=== PATIENT | female | born 1960 | race Caucasian/White ===

== ENCOUNTER → 2022-06-18 | Outpatient (CLI) | payer OTHER, SELFPAY ==
--- NOTE | 2022-06-18 13:23 | RAD_ITS ---
INDICATION: PARESTHESIAS EXAMINATION/TECHNIQUE: X-RAY - XR Spine Cervical 4 or 5 Views COMPARISON: None. FINDINGS: VERTEBRAE: Loss of normal lordotic curvature which may be due to muscle spasm or positioning artifact. Preserved vertebral body height. No fracture. Grade 1 retrolisthesis at C4-5. Preservation of the normal cervical lordosis. No significant facet arthropathy. Narrowed left C5-6 nerve root foramen secondary to bony hypertrophy and on the right at C4-5 due to bony hypertrophy DISCS: Narrowed C3-4, C4-5 and C5-6 disc spaces with endplate spurring.. NECK SOFT TISSUES: No prevertebral soft tissue widening. LUNG APICES: Clear. RAD/Cerv Spine 4 or 5 Views IMPRESSION: Moderate degenerative changes. No acute fracture or subluxation CT or MRI would be helpful for further evaluation Electronically Signed: Karl Purdy MD at 23:00 EST ,
== END | disposition home or self-care (01) ==
LOC: MTRAD 13:22
PROVIDERS: PCP Family Medicine; Referring Provider Family Medicine; Visit Provider Family Medicine
DX: M47.812 Spondylosis without myelopathy or radiculopathy, cervical region (principal); M50.221 Other cervical disc displacement at C4-C5 level; M50.31 Other cervical disc degeneration, high cervical region; R20.2 Paresthesia of skin
CPT/HCPCS: 72050

== ENCOUNTER → 2023-04-23 | Outpatient (CLI) | payer MEDICARE, SELFPAY | END | disposition home or self-care (01) | LOC: MTLAB 07:43 | PROVIDERS: PCP Family Medicine; Referring Provider Family Medicine; Visit Provider Family Medicine | DX: Z00.00 Encounter for general adult medical examination without abnormal findings (principal); Z13.220 Encounter for screening for lipoid disorders; Z13.1 Encounter for screening for diabetes mellitus ==

== ENCOUNTER 2023-06-24 08:04 | Outpatient (CLI) | payer MEDICARE, SELFPAY ==
--- OUTSIDE RECORDS SUMMARY | 2023-06-24 08:17 | XMS RPT_ITS | CCD ---
Author Name Unknown Address [address] [place] [address] Organization [facility] Care Team Providers Care Channeler Name Role Phone Yamini SYED, Rula Primary Care Provider Allergies Allergy Classification Reported Allergen(s) Allergy Type Date of Onset Reaction(s) Facility (1 source) Codeine Drug Allergy 07-21-2017 Hives [facility] Work Phone: (1 source) Penicillins Propensity to adverse reactions 08-04-2005 Rash [facility] Medications Current Medications Medication Drug Class(es) Dates Sig (Normalized) Sig (Original) perflutren lipid microspheres 1.3 mL in NaCl (PF) 0.9% 10 mL injection (DEFINITY) (1 source) Start: 09-19-2020 End: 12-19-2021 perflutren lipid microspheres 1.3 mL in NaCl (PF) 0.9% 10 mL injection (DEFINITY) 125 ml sodium chloride 9 mg/ml prefilled syringe (1 source) Start: 09-19-2020 End: 12-19-2021 sodium chloride 0.9 % (flush) 10 mL (BD POSIFLUSH) Completed/Discontinued Medications Medication Drug Class(es) Dates Sig (Normalized) Sig (Original) aspirin 81 mg delayed release oral tablet (1 source) Platelet Aggregation Inhibitor, Nonsteroidal Anti-inflammatory Drug take 1 tablet by mouth once daily aspirin, enteric coated (ASPIRIN LOW DOSE) 81 mg EC tablet Take 81 mg by mouth once daily. 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; Translations: [Other cervical disc displacement, unspecified cervical region] Onset: 09-10-2005 09-10-2005 Chronic Past or Other Problems Problem Classification Problem Date Documented Da te Episodic/Chronic Other connective tissue disease (1 source) Lateral epicondylitis; Translations: [Lateral epicondylitis, unspecified elbow] Onset: 09-10-2005 09-10-2005 Episodic Encounters Encounter Date Encounter Type Care Provider Facility Start: 11-12-2021 ambulatory Rula Hernandez Work Phone: [facility] [place] Procedures Date Procedure Procedure Detail Performing Clinician Start: 10-10-2020 Mammography Rula pang MD Work Phone: Start: 09-12-2020 Adult depression scr eening assessment Rula Mistry MD Work Phone: Start: 04-13-2018 Colonoscopy Rula pang MD Work Phone: Plan of Treatment Date Care Activity Detail Author Start: 04-13-2028 Colonoscopy COLONOSCOPY [facility] Start: 04-13-2028 COLORECTAL CANCER SCREENING COLORECTAL CANCER SCREENING [facility] Start: 09-27-2025 LIPID SCREEN LIPID SCREEN [facility] Start: 09-28-2023 DIABETES SCREEN DIABETES SCREEN [facility] Start: 03-07-2022 Urine microalbumin profile DTAP,TDAP,TD (2 - Td or Tdap) [facility] Start: 02-05-2022 Influenza vaccination INFLUENZA (Season Ended) [facility] Start: 10-10-2021 Mammography MAMMOGRAM [facility] Start: 09-12-2021 Adult depression screening assessment DEPRESSION SCREENING [facility] Start: 2008 SHINGRIX VACCINE (1 of 2) SHINGRIX VACCINE (1 of 2) [facility] Start: 2003 COLOGUARD (FIT-DNA) COLOGUARD (FIT-DNA) [facility] Start: [address] COLONOGRAPHY [facility] Start: 2003 FECAL OCCULT BLOOD FECAL OCCULT BLOOD [facility] Start: 2003 SIGMOIDOSCOPY SIGMOIDOSCOPY [facility] Start: 1988 HPV TESTING HPV TESTING [facility] Start: 1979 PAP TESTING PAP TESTING [facility] Start: 1964 PNEUMOCOCCAL (1 - PCV) PNEUMOCOCCAL (1 - PCV) [facility] Start: 1963 COVID-19 VACCINE (#1) COVID-19 VACCINE (#1) [facility] End: 12-12-2022 Screening mammography bi 2-view breast inc cad JEEVAN SCREENING Radiology Routine Encounter for screening mammogram for breast cancer 1 Occurrences starting 11/12/2021 until 12/12/2022 [facility] Work Phone: Immunizations Immunization Date Immunization Notes Care Provider Fa cility 06-14-2018 influenza, injectabl e, quadrivalent, contains preservative Rula Mistry MD Work Phone: [facility] Work Phone: 03-07-2012 tetanus toxoid, redu anthony diphtheria toxoid, and acellular pertussis vaccine, adsorbed Rula Mistry MD Work Phone: [facility] Work Phone: Payers Date Payer Category Payer Private Health Insurance CIG[employer] C IGNA OAP [id number] 2020-Present [phone] [facility] [id number] [place] [address] Open Access [id number] Social History Date Type Detail Facility Tobacco smoking stat RUSTIS Smokes tobacco daily [facility] History of tobacco use Cigarette Smoker [facility] Start: 04-16-2021 Alcohol intake Current drinke r of alcohol (finding) [facility] Start: 09-12-2020 History SDOH Alcohol Frequency 2 [facility] Start: 06-27-2019 End: 09-12-2020 History SDOH Alcohol Std Drinks 1 [facility] Start: 09-12-2020 History SDOH Social Connections Phone 5 [facility] Start: 09-12-2020 History SDOH Social Connections Muslim 3 [facility] Start: 09-12-2020 History SDOH Physica l Activity DPW 4 [facility] Start: 09-12-2020 History SDOH Physica l Activity MPS 12 [facility] Start: 09-12-2020 Education 21 [facility] Start: 1960 Sex Assigned At Female C [facility] Clinical Note 11-11-2022 Note Date & Type Note Facility 11-11-2022 Note Patient Outreach (IN [facility]) NATHANIEL KENDRICK ([id number]) 1960 F Date Time Provider Department 11/11/22 RULA MISTRY During your visit today, we recorded the following information about you: Allergies As of Date: 11/11/2022 Noted Allergy Reaction CODEINE 07/21/2017 4 - Hives PENICILLINS 08/04/2005 2 - Rash Date Reviewed: 04/16/2021 Reviewed by: Natasha Polk DO - Fully Assessed Visit Diagnosis:Encounter for screening mammogram for breast cancer [Z12.31] Order(s):[facility] SCREENING [[id number]] Order #: [id number] FUTURE Prescriptions as of 11/16/2022 - loratadine (CLARITIN ORAL) Take by mouth. - aspirin, enteric coated (ASPIRIN LOW DOSE) 81 mg EC tablet Take 81 mg by mouth once daily. - naproxen sodium (ALEVE) 220 mg tablet Take 220 mg by mouth twice daily with meals. - MULTI-VITAMIN ORAL Take by mouth once daily. Problem List As Of Date 11/11/2022 Noted Resolved CERVICAL DISC DISPLACMNT [M50.20] 09/10/2005 LATERAL EPICONDYLITIS [M77.10] 09/10/2005 Encounter for screening for malignant neoplasm *03/29/2018 Encounter Status:Closed by CODY ABDALLA on 11/16/22 [facility] Evaluation note Note Date & Type Note Facility documented in this encounter [facility] Reason for referral (narrative) Diagnostic Procedure Only (Routine) - Pending Review Note Date & Type Note Facility Referral ID Status Reason Start Date Expiration Date Visits Requested Visits Authorized [id number] Pending Review Auto-Generat ed Referral 11/12/2021 12/12/2022 1 1 [facility] Advance Directives No Advanced Directives Records FoundDocuments on File Type Date Recorded 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 Advance Directive(s) 04/13/2018 7:06 AM Advance Directive(s) 04/06/2018 8:35 AM Summary Purpose Family History No Family History Records Found Additional Source Comments Source Comments (unrecognize d section and content) In the event this informatio n is protected by the Federal Confidentiality of Alcohol and Drug Abuse Patient Records regulations: The Federal rules restrict any use of the information to criminally investigate or prosecute any alcohol or drug abuse patient.[facility] Care Teams (unrecognized sec tion and content) INFORMATION SOURCE (unrecogn ized section and content) FOR RECORDS PERTAINING TO PATIENTS WHO ARE OR HAVE BEEN ENROLLED IN A CHEMICAL DEPENDENCY/SUBSTANCEABUSE PROGRAM, SOME INFORMATION MAY BE OMITTED. This clinical summary was aggregated from multiple sources. Caution should be exercised in using it in the provision of clinical care. This summary normalizes information from multiple sources, and as a consequence, information in this document may materially change the coding, format and clinical context of patient data. In addition, data may be omitted in some cases. CLINICAL DECISIONS SHOULD BE BASED ON THE PRIMARY CLINICAL RECORDS. [facility]. provides no warranty or guarantee of the accuracy or completeness of information in this document.
[2023-06-24 10:51] LABS: Anion Gap 4 (5-15); BUN 24 mg/dL (7-18); BUN/Creat Ratio 31.8 RATIO (10-20); Calcium,Total 9.4 mg/dL (8.5-10.1); Chloride 106 mmol/L (98-107); Cholesterol 307 mg/dL (200); Creatinine, Serum 0.75 mg/dL (0.55-1.02); EST Glomerular Filtration Rate 82 mL/min (>60); Est Glom Filt Rate - Afr Amer 99 mL/min (>60); Glucose 92 mg/dL (74-106); High Density Lipoprotein 69 mg/dL; Potassium 4.2 mmol/L (3.5-5.1); Sodium Level 139 mmol/L (136-145); Thyroid Stim Hormone (TSH) 1.38 uIU/mL (0.358-3.74); Triglycerides 147 mg/dL; Very Low Density Lipoprotein 29 mg/dL (5-40)
== END 2023-06-24 23:59 | disposition home or self-care (01) ==
LOC: MFPLAB 08:04
PROVIDERS: PCP Family Medicine; Visit Provider Family Medicine
DX: Z00.00 Encounter for general adult medical examination without abnormal findings (principal); Z13.6 Encounter for screening for cardiovascular disorders; F41.9 Anxiety disorder, unspecified
CPT/HCPCS: 36415; 80048; 80061; 82306; 84443

== ENCOUNTER → 2023-09-06 | Outpatient (CLI) | payer MEDICARE, SELFPAY ==
[2023-09-10 12:09] LABS: HPV APTIMA, High Risk Negative (Negative)
[2023-09-10 16:44] LABS: HPV Reflexed? YES, CHARGE PATIENT
== END | disposition home or self-care (01) ==
LOC: LABSPEC 12:23
PROVIDERS: PCP Family Medicine; Visit Provider Nurse Practitioner Family
DX: Z12.4 Encounter for screening for malignant neoplasm of cervix (principal)
CPT/HCPCS: 87624; 88175; G0145

== ENCOUNTER → 2023-09-24 | Outpatient (CLI) | payer MEDICARE, SELFPAY ==
[2023-09-24 11:50] LABS: Cholesterol 231 mg/dL (200); High Density Lipoprotein 56 mg/dL; Triglycerides 169 mg/dL; Very Low Density Lipoprotein 34 mg/dL (5-40)
== END | disposition home or self-care (01) ==
LOC: MFPLAB 08:01
PROVIDERS: PCP Family Medicine; Visit Provider Family Medicine
DX: E78.5 Hyperlipidemia, unspecified (principal)
CPT/HCPCS: 36415; 80061

== ENCOUNTER → 2024-08-04 | Outpatient (CLI) | payer MEDICARE, SELFPAY ==
[2024-08-04 12:54] LABS: Cholesterol 214 mg/dL (<=200); High Density Lipoprotein 65 mg/dL; Low Density Lipoprotein Calc. 124 mg/dL; Triglycerides 126 mg/dL; Very Low Density Lipoprotein 25 mg/dL (5-40)
[2024-08-04 13:07] LABS: Hemoglobin A1c 5.7 % (<=5.6)
== END | disposition home or self-care (01) ==
LOC: MTLAB 09:37
PROVIDERS: PCP Family Medicine
DX: Z13.220 Encounter for screening for lipoid disorders (principal); Z13.1 Encounter for screening for diabetes mellitus
CPT/HCPCS: 36415; 80061; 83036

== ENCOUNTER → 2024-09-12 | Outpatient (CLI) | payer MEDICARE, SELFPAY ==
--- NOTE | 2024-09-12 16:15 | BD_ITS ---
PROCEDURE: DEXA BONE DENSITY STUDY 09/12/2024 REASON FOR EXAM: None provided. TECHNIQUE: DXA scan of the lumbar spine and bilateral hips, using Hologic Horizon W. REFERENCE LINKS: ISCD Adult Positions COMPARISON: None. FINDINGS: LUMBAR SPINE: Bone mineral denisty, L1-L4: 0.865 g/cm??? T-score: -1.7 LEFT FEMORAL NECK: Bone mineral denisty: 0.653 g/cm??? T-score: -1.8 LEFT TOTAL HIP: Bone mineral denisty: 0.812 g/cm??? T-score: -1.1 RIGHT FEMORAL NECK: Bone mineral denisty: 0.665 g/cm??? T-score: -1.7 RIGHT TOTAL HIP: Bone mineral denisty: 0.795 g/cm??? T-score: -1.2 FRAX*: 10 Year Probability of Fracture: Major Osteoporotic Fracture(1): 9.5% Hip Fracture(2): 2.1% *FRAX is a trademark of the [employer]'s [employer] for Metabolic Bone Disease, World Health Organization (WHO) Collaborating [employer]. 1-Major Osteoporotic Fracture: Clinical Spine, Forearm, Hip or Shoulder. 2-The 10-year probability of fracture may be lower than reported if the patient has received treatment. The National Osteoporosis Foundation recommends that medical therapy be considered in postmenopausal women and men, age 50 and older, with a: * hip or vertebral fracture * T-score less than or equal to -2.5 in the spine or hip * T-score between -1.0 and -2.5 and FRAX equal to or less than 3 percent for hip fracture or equal to or less than 20 percent for major osteoporotic fracture. World Health Organization criteria for BMD interpretation classify patients as Normal (T-score at or above -1.0), Osteopenic (T-score between -1.0 and -2.5), or Osteoporotic (T-score at or below -2.5). BD/Dexa Bone Density Study IMPRESSION: 1. Osteopenia. 2. No prior exams are available for comparison. 3. Additional description as above. Reading Location: [id number]
--- NOTE | 2024-09-12 16:15 | BI_ITS ---
EXAM: SCRN MAMM (CAD)W/CHRISTI BILAT 09/12/2024 CLINICAL HISTORY: F, Age 64 y/o , SCREENING BREAST CANCER TECHNIQUE: Bilateral screening digital breast tomosynthesis with 2D and 3D images. Computer aided detection. COMPARISON: Prior exam(s) dated 09/19/2012, 04/05/2008. FINDINGS: TISSUE DENSITY: The breast tissue is heterogenously dense, which may obscure small masses. The mammogram demonstrates that the patient has dense breasts. Supplemental screening with whole breast ultrasound or MRI may be considered for further evaluation. Bilateral Breast Mammographic Findings: There is an asymmetry in the superior right breast at anterior depth visualized on the MLO view. No significant masses, calcifications or other abnormalities are identified in the left breast. BI/SCRN MAMM (CAD)W/CHRISTI BILAT IMPRESSION: The asymmetry in the superior right breast at anterior depth visualized on the MLO view requires further evaluation. Recommend diagnostic mammogram of the right breast and ultrasound on the day of diagnosti c if indicated. Right Breast: BIRADS 0 Incomplete: Need additional imaging evaluation and/or pr ior mammograms for comparison.. Left Breast: BIRADS 1 NEGATIVE. OVERALL FINAL ASSESSMENT: BIRADS 0 Incomplete: Need additional imaging evaluati on and/or prior mammograms for comparison.. RECOMMENDATION: Recommendation: Additional projections. A letter with findings and recommendations will be mailed to the patient. Reading Location: [facility]
== END | disposition home or self-care (01) ==
LOC: OPBD 16:14
PROVIDERS: PCP Family Medicine
DX: Z12.31 Encounter for screening mammogram for malignant neoplasm of breast (principal); Z13.820 Encounter for screening for osteoporosis; M85.88 Other specified disorders of bone density and structure, other site
CPT/HCPCS: 77063; 77067; 77080

== ENCOUNTER → 2024-09-15 | Outpatient (CLI) | payer MEDICARE, SELFPAY ==
--- NOTE | 2024-09-15 07:48 | US_ITS ---
PROCEDURE: DIAG MAMM W/CAD, UNILAT; RT BRST UNILAT CHRISTI ADD-ON; BREAST LIMITED UNILATERAL REASON FOR EXAM: 64-year-old female presents for follow-up of the right breast findings seen on the examination of 09/12/2024. No family history of breast cancer. COMPARISON: 09/12/2024, 09/19/2012 and 04/05/2008 TECHNIQUE: Right diagnostic digital breast tomosynthesis with 2D and 3D images. Computer aided detection. Also, targeted right breast ultrasound was performed. FINDINGS: MAMMOGRAM: TISSUE DENSITY: The breast is heterogeneously dense which may obscure small masses. Follow-up examination performed for the asymmetry in the superior right breast on examination of 09/12/2024. On the present examination, the asymmetry in the superior right breast at anterior depth persist. ULTRASOUND: Ultrasound performed of the superior right breast demonstrates an architecturally normal-appearing intramammary lymph node in the right breast at 1 o'clock 5 cm from the nipple measuring 0.8 x 0.7 x 0.3 cm, with normal cortical thickness of 0.1 cm. This is the likely correlate for the mammographic finding. US/Breast Limited Unilateral IMPRESSION: Benign right breast intramammary lymph node. BI-RADS 2: BENIGN RECOMMEND ANNUAL MAMMOGRAPHIC SCREENING. Reading Location: [id number]
--- NOTE | 2024-09-15 07:52 | BI_ITS ---
PROCEDURE: DIAG MAMM W/CAD, UNILAT; RT BRST UNILAT CHRISTI ADD-ON; BREAST LIMITED UNILATERAL REASON FOR EXAM: 64-year-old female presents for follow-up of the right breast findings seen on the examination of 09/12/2024. No family history of breast cancer. COMPARISON: 09/12/2024, 09/19/2012 and 04/05/2008 TECHNIQUE: Right diagnostic digital breast tomosynthesis with 2D and 3D images. Computer aided detection. Also, targeted right breast ultrasound was performed. FINDINGS: MAMMOGRAM: TISSUE DENSITY: The breast is heterogeneously dense which may obscure small masses. Follow-up examination performed for the asymmetry in the superior right breast on examination of 09/12/2024. On the present examination, the asymmetry in the superior right breast at anterior depth persist. ULTRASOUND: Ultrasound performed of the superior right breast demonstrates an architecturally normal-appearing intramammary lymph node in the right breast at 1 o'clock 5 cm from the nipple measuring 0.8 x 0.7 x 0.3 cm, with normal cortical thickness of 0.1 cm. This is the likely correlate for the mammographic finding. BI/DIAG MAMM W/CAD, UNILAT IMPRESSION: Benign right breast intramammary lymph node. BI-RADS 2: BENIGN RECOMMEND ANNUAL MAMMOGRAPHIC SCREENING. Reading Location: [id number]
--- NOTE | 2024-09-15 07:53 | BI_ITS ---
PROCEDURE: DIAG MAMM W/CAD, UNILAT; RT BRST UNILAT CHRISTI ADD-ON; BREAST LIMITED UNILATERAL REASON FOR EXAM: 64-year-old female presents for follow-up of the right breast findings seen on the examination of 09/12/2024. No family history of breast cancer. COMPARISON: 09/12/2024, 09/19/2012 and 04/05/2008 TECHNIQUE: Right diagnostic digital breast tomosynthesis with 2D and 3D images. Computer aided detection. Also, targeted right breast ultrasound was performed. FINDINGS: MAMMOGRAM: TISSUE DENSITY: The breast is heterogeneously dense which may obscure small masses. Follow-up examination performed for the asymmetry in the superior right breast on examination of 09/12/2024. On the present examination, the asymmetry in the superior right breast at anterior depth persist. ULTRASOUND: Ultrasound performed of the superior right breast demonstrates an architecturally normal-appearing intramammary lymph node in the right breast at 1 o'clock 5 cm from the nipple measuring 0.8 x 0.7 x 0.3 cm, with normal cortical thickness of 0.1 cm. This is the likely correlate for the mammographic finding. BI/Rt Brst [facility] Add-On IMPRESSION: Benign right breast intramammary lymph node. BI-RADS 2: BENIGN RECOMMEND ANNUAL MAMMOGRAPHIC SCREENING. Reading Location: [id number]
== END | disposition home or self-care (01) ==
LOC: OPUS 07:46
PROVIDERS: PCP Family Medicine
DX: R92.341 Mammographic extreme density, right breast (principal); R92.8 Other abnormal and inconclusive findings on diagnostic imaging of breast
CPT/HCPCS: 76642; 77061; 77065; G0279

== ENCOUNTER → 2024-10-09 | Outpatient (CLI) | payer MEDICARE, SELFPAY ==
--- NOTE | 2024-10-09 13:19 | RAD_ITS ---
EXAM: DX wrist minimum three views CLINICAL HISTORY: Pain, fall COMPARISON: None available TECHNIQUE: Three views right wrist FINDINGS: No fracture or dislocation. The joint spaces appear within limits. Soft tissue swelling about the wrist. RAD/Wrist min 3 Views IMPRESSION: No fracture or dislocation. If symptoms persist, may follow-up with a repeat i maging in 7-10 days as warranted. Soft tissue swelling about the wrist. Reading Location: [id number]
== END | disposition home or self-care (01) ==
LOC: MTRAD 13:17
PROVIDERS: PCP Family Medicine; Referring Provider Family Medicine; Visit Provider Family Medicine
DX: M25.531 Pain in right wrist (principal)
CPT/HCPCS: 73110

== ENCOUNTER → 2024-10-23 | Outpatient (CLI) | payer MEDICARE, SELFPAY ==
--- NOTE | 2024-10-23 16:34 | RAD_ITS ---
PROCEDURE: WRIST MIN 3 VIEWS 10/23/2024 REASON FOR EXAM: PAIN TECHNIQUE: 3 view(s) of the right wrist COMPARISON: 10/09/2024 FINDINGS: An obliquely oriented nondisplaced intra-articular distal radius fracture is now visible. No dislocation. Soft tissue swelling again noted. RAD/Wrist min 3 Views IMPRESSION: An obliquely oriented nondisplaced intra-articular distal radius fracture is no w visible. No dislocation. Soft tissue swelling again noted. Reading Location: [id number]
== END | disposition home or self-care (01) ==
LOC: MTRAD 16:29
PROVIDERS: PCP Family Medicine; Referring Provider Family Medicine; Visit Provider Family Medicine
DX: M25.531 Pain in right wrist (principal)
CPT/HCPCS: 73110

== ENCOUNTER → 2024-11-23 | Outpatient (CLI) | payer MEDICARE, SELFPAY ==
--- NOTE | 2024-11-23 15:58 | RAD_ITS ---
PROCEDURE: WRIST MIN 3 VIEWS 11/23/2024 REASON FOR EXAM: RIGHT WRIST FRACTURE TECHNIQUE: WRIST MIN 3 VIEWS COMPARISON: 10/23/2024. FINDINGS: Good alignment is noted at the level of the distal radial metaphyseal fracture line. Further partial healing of the fracture line is noted. Mild osteopenia of the visualized bones. Degenerative joint disease. No dislocation is seen. No lytic or blastic bone lesion is noted. RAD/Wrist min 3 Views IMPRESSION: Good alignment is noted at the level of the distal radial metaphyseal fracture line. Further partial healing of the fracture line is noted. Mild osteopenia of the visualized bones. Reading Location: [id number]
== END | disposition home or self-care (01) ==
LOC: MTRAD 15:57
PROVIDERS: PCP Family Medicine; Referring Provider Family Medicine; Visit Provider Family Medicine
DX: M25.531 Pain in right wrist (principal)
CPT/HCPCS: 73110